=== PATIENT | male | born 1980 | race Caucasian/White ===

== ENCOUNTER 2018-02-14 02:19 | Emergency (ER) | payer SELFPAY ==
[~2018-02-14] VITALS: Ht 180.3 cm; Wt 83.9 kg
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
[2018-02-14 05:35] VITALS: BP 120/60
[2018-02-14] MEDS ORDERED: AUGMENTIN 500-1 EACH PO (06:22)
[2018-02-14] MEDS ORDERED: ULTRAM50 M1 PO (06:22)
== END 2018-02-14 06:25 | disposition left against medical advice (07) ==
LOC: ERH 02:19
DX: S02.401A Maxillary fracture, unspecified side, initial encounter for closed fracture (principal); S01.311A Laceration without foreign body of right ear, initial encounter; S01.112A Laceration without foreign body of left eyelid and periocular area, initial encounter; S20.212A Contusion of left front wall of thorax, initial encounter; F10.129 Alcohol abuse with intoxication, unspecified; Y04.0XXA Assault by unarmed brawl or fight, initial encounter